=== PATIENT | male | born 1940 | race Caucasian/White ===

== ENCOUNTER 2021-04-25 11:11 | Emergency (ER) | payer MEDICARE ==
[2021-04-25 21:08] LABS: SARS-CoV-2 PCR by NAA DETECTED (NotDetected)
== END 2021-04-25 13:31 | disposition home or self-care (01) ==
LOC: ERS 11:11
DX: U07.1 COVID-19 (principal); I10 Essential (primary) hypertension; E78.5 Hyperlipidemia, unspecified; Z79.899 Other long term (current) drug therapy
CPT/HCPCS: U0003; U0005; 99284

== ENCOUNTER 2021-05-27 11:19 | Day surgery (SDC) | payer MEDICARE ==
[2021-05-26 12:59] VITALS: BMI 23.5
[~2021-05-27 11:19] MED LIST: Famotidine/PF 20 mg/2ml Vial ONE; Fentanyl 100 MCG/2 ML VIAL ONE; Fluorouracil 100 MG, Enoxaparin Sodium 25 MG, EPINEPHrine 0.3 MG in Ophthalmic Irrigati... IRR SCH
[2021-05-27] MEDS ORDERED: Phenylephrine 2.5% Ophth Soln 5 ML BOT ONE (11:31)
[2021-05-27] MEDS ORDERED: Cyclopentolate 1% Opth Drop 2 ML BOT ONE (11:31)
[2021-05-27] MEDS ORDERED: CEFAZOLIN 1 GM VIAL ONE (12:05)
[2021-05-27] MEDS ORDERED: Ondansetron PF 4 MG/2 ML Vial ONE (12:05)
[2021-05-27] MEDS ORDERED: Enoxaparin Sodium 30 MG/0.3 ML SYRINGE ONE (12:05)
[2021-05-27] MEDS ORDERED: ePHEDrine 50 MG/ML VIAL ONE (12:05)
[2021-05-27] MEDS ORDERED: Triamcinolone 40 MG/ML VIAL ONE (12:05)
[2021-05-27] MEDS ORDERED: Metoclopramide HCl 10 MG/2 ML VIAL ONE (12:05)
[2021-05-27] MEDS ORDERED: Lidocaine 4% PF 5 ML AMP ONE (12:05)
[2021-05-27] MEDS ORDERED: Bupivacaine PF 0.75% SDV 10 ML ONE (12:05)
[2021-05-27] MEDS ORDERED: PROPOFOL 200 MG/20 ML VIAL ONE (12:05)
[2021-05-27] MEDS ORDERED: Lidocaine 1% PF 5 ML VIAL ONE ×2 (12:05)
[2021-05-27] MEDS ORDERED: Maxitrol 0.1% Opth Oint 3.5 GM TUBE ONE (12:05)
[2021-05-27] MEDS ORDERED: PHENYLEPHRINE-NS 100 MCG/ML 10 ML SYRINGE ONE (12:05)
== END 2021-05-27 15:15 | disposition home or self-care (01) ==
LOC: SDC 11:19
PROVIDERS: ATTEND Ophthalmology Retina Specialist
PROC: 08T43ZZ Resection of Right Vitreous, Percutaneous Approach (ICD-10-PCS; principal; 2021-05-27)
PROC: 08NE3ZZ Release Right Retina, Percutaneous Approach (ICD-10-PCS; 2021-05-27)
DX: H33.021 Retinal detachment with multiple breaks, right eye (principal); Z79.899 Other long term (current) drug therapy; Z98.41 Cataract extraction status, right eye; Z98.42 Cataract extraction status, left eye; Z96.1 Presence of intraocular lens
CPT/HCPCS: C1814; J0171; J0690; J1650; J2405; J2704; J2765; J3010; J3301; J3490; J9190; S0028

== ENCOUNTER 2021-08-25 08:58 | Outpatient (CLI) | payer MEDICARE ==
[2021-08-25 18:50] LABS: SARS-CoV-2 PCR by NAA Not Detected (NotDetected)
== END 2021-08-25 08:59 | disposition home or self-care (01) ==
LOC: LABBT 08:58
PROVIDERS: ATTEND Ophthalmology Retina Specialist
DX: Z01.812 Encounter for preprocedural laboratory examination (principal); H43.391 Other vitreous opacities, right eye; H54.7 Unspecified visual loss; Z20.822 Contact with and (suspected) exposure to COVID-19
CPT/HCPCS: U0003; U0005

== ENCOUNTER 2021-09-20 09:14 | Outpatient (CLI) | payer MEDICARE ==
[2021-09-20 19:53] LABS: SARS-CoV-2 PCR by NAA Not Detected (NotDetected)
== END 2021-09-20 09:15 | disposition home or self-care (01) ==
LOC: LABBT 09:14
PROVIDERS: ATTEND Ophthalmology Retina Specialist
DX: Z01.812 Encounter for preprocedural laboratory examination (principal); Z20.822 Contact with and (suspected) exposure to COVID-19
CPT/HCPCS: U0003; U0005

== ENCOUNTER 2021-10-11 08:55 | Outpatient (CLI) | payer MEDICARE ==
[2021-10-12 11:50] LABS: SARS-CoV-2 PCR by NAA Not Detected (NotDetected)
== END 2021-10-11 08:56 | disposition home or self-care (01) ==
LOC: LABBT 08:55
PROVIDERS: ATTEND Ophthalmology Retina Specialist
DX: Z01.812 Encounter for preprocedural laboratory examination (principal); H43.311 Vitreous membranes and strands, right eye; Z20.822 Contact with and (suspected) exposure to COVID-19
CPT/HCPCS: U0003; U0005

== ENCOUNTER 2021-10-14 06:32 | Day surgery (SDC) | payer MEDICARE ==
[2021-10-07 10:50] VITALS: BMI 24.4
[~2021-10-14 06:32] MED LIST changes: -Famotidine/PF 20 mg/2ml Vial ONE; +Midazolam HCl 2 mg/2 ml Vial ONE
[2021-10-14] MEDS ORDERED: Cyclopentolate 1% Opth Drop 2 ML BOT ONE (07:42)
[2021-10-14] MEDS ORDERED: Phenylephrine 2.5% Ophth Soln 5 ML BOT ONE (07:43)
[2021-10-14] MEDS ORDERED: PROPOFOL 200 MG/20 ML VIAL ONE (09:56)
[2021-10-14] MEDS ORDERED: Enoxaparin Sodium 30 MG/0.3 ML SYRINGE ONE (09:56)
[2021-10-14] MEDS ORDERED: Lidocaine 1% PF 5 ML VIAL ONE (09:56)
[2021-10-14] MEDS ORDERED: Glycopyrrolate 0.2 MG/ML 5 ML SYRINGE ONE (09:56)
[2021-10-14] MEDS ORDERED: Lidocaine 4% PF 5 ML AMP ONE (09:56)
[2021-10-14] MEDS ORDERED: Maxitrol 0.1% Opth Oint 3.5 GM TUBE ONE (09:56)
[2021-10-14] MEDS ORDERED: Triamcinolone 40 MG/ML VIAL ONE (09:56)
[2021-10-14] MEDS ORDERED: Bupivacaine PF 0.75% SDV 10 ML ONE (09:56)
[2021-10-14] MEDS ORDERED: CEFAZOLIN 1 GM VIAL ONE (09:56)
== END 2021-10-14 11:55 | disposition home or self-care (01) ==
LOC: SDC 06:32
PROVIDERS: ATTEND Ophthalmology Retina Specialist
PROC: 08T43ZZ Resection of Right Vitreous, Percutaneous Approach (ICD-10-PCS; principal; 2021-10-14)
PROC: 08NE3ZZ Release Right Retina, Percutaneous Approach (ICD-10-PCS; 2021-10-14)
DX: H43.311 Vitreous membranes and strands, right eye (principal); Z79.899 Other long term (current) drug therapy
CPT/HCPCS: J0171; J0690; J1650; J2250; J2704; J3010; J3301; J3490; J9190

== ENCOUNTER 2021-10-27 09:57 | Outpatient (CLI) | payer MEDICARE ==
[2021-10-27 23:01] LABS: SARS-CoV-2 PCR by NAA Not Detected (NotDetected)
== END 2021-10-27 09:58 | disposition home or self-care (01) ==
LOC: LABBT 09:57
PROVIDERS: ATTEND Ophthalmology Retina Specialist
DX: Z01.812 Encounter for preprocedural laboratory examination (principal); Z20.822 Contact with and (suspected) exposure to COVID-19
CPT/HCPCS: U0003; U0005

== ENCOUNTER 2021-10-28 11:51 | Day surgery (SDC) | payer MEDICARE ==
[2021-10-27 15:54] VITALS: BMI 24.4
[~2021-10-28 11:51] MED LIST changes: +Activase 2 MG VIAL FS SCH; +Amphotericin B(Fungizone) 0.75 MG in Sterile Water 10 ML IVPB SCH; -Fluorouracil 100 MG, Enoxaparin Sodium 25 MG, EPINEPHrine 0.3 MG in Ophthalmic Irrigati... IRR SCH
[2021-10-28] MEDS ORDERED: EPINEPHrine 0.3 MG in Ophthalmic Irrigation Solution 500 ML IRR SCH (12:45)
[2021-10-28] MEDS ORDERED: Phenylephrine 2.5% Ophth Soln 5 ML BOT ONE (13:09)
[2021-10-28] MEDS ORDERED: Cyclopentolate 1% Opth Drop 2 ML BOT ONE (13:09)
[2021-10-28] MEDS ORDERED: Lidocaine 1% PF 5 ML VIAL ONE (15:11)
[2021-10-28] MEDS ORDERED: Maxitrol 0.1% Opth Oint 3.5 GM TUBE ONE (15:11)
[2021-10-28] MEDS ORDERED: PROPOFOL 200 MG/20 ML VIAL ONE (15:11)
[2021-10-28] MEDS ORDERED: Bupivacaine PF 0.75% SDV 10 ML ONE (15:11)
[2021-10-28] MEDS ORDERED: Triamcinolone 40 MG/ML VIAL ONE (15:11)
[2021-10-28] MEDS ORDERED: Lidocaine 4% PF 5 ML AMP ONE (15:11)
[2021-10-28] MEDS ORDERED: CEFAZOLIN 1 GM VIAL ONE (15:11)
[2021-10-28] MEDS ORDERED: Vancomycin HCl 100 MG, Sodium Chloride 0.9% 10 ML TOP SCH (15:15)
== END 2021-10-28 17:05 | disposition home or self-care (01) ==
LOC: SDC 11:51
PROVIDERS: ATTEND Ophthalmology Retina Specialist
PROC: 08T43ZZ Resection of Right Vitreous, Percutaneous Approach (ICD-10-PCS; principal; 2021-10-28)
PROC: 08NE3ZZ Release Right Retina, Percutaneous Approach (ICD-10-PCS; 2021-10-28)
DX: H43.11 Vitreous hemorrhage, right eye (principal); H44 Disorders of globe; Z79.899 Other long term (current) drug therapy
CPT/HCPCS: 87070; 87205; J0171; J0285; J0690; J0713; J2250; J2704; J2997; J3010; J3301; J3370; J3490